=== PATIENT | male | born 1970 | race Hispanic/Latino ===

== ENCOUNTER → 2018-09-22 | Day surgery (SDC) | payer BC ==
[~2018-09-22] MED LIST: FENTANYL CITRATE/PF 100MCG/2 ML INJ ONE; MIDAZOLAM HCL 2 MG/2 ML VIAL ONE; PROPOFOL IV EMULSION 10 MG/ML 50 ML VIAL ONE
[2018-09-22 12:15] VITALS: BP 130/85
--- NOTE | 2018-09-22 19:03 | Operative Report ---
DATE OF PROCEDURE: 09/22/2018 SURGEON: Bruno Goodman MD PROCEDURE: Colonoscopy and polypectomy with biopsies. INDICATION FOR COLONOSCOPY: Colorectal cancer screening, father with colon cancer. MEDICATIONS: The patient was done under MAC, please see anesthesiologist's note. PROCEDURE IN DETAIL: With the patient in left lateral decubitus position, a flexible fiberoptic Olympus colonoscope was inserted into the rectum with ease and advanced all the way to the cecum. The scope was then withdrawn slowly. Mucosa overlying the cecum, ascending colon, transverse colon appeared to be within normal limits. Diverticular disease was noted to involve the distal descending and the sigmoid colon. There were some patchy [id number] inflammatory changes noted in the sigmoid as well as the rectum. Multiple random biopsies were obtained. One polyp was not biopsied from the sigmoid colon. The scope was then retroflexed into the distal rectum. Small internal hemorrhoids were noted, none of which were actively bleeding. The scope was then straightened out, it was subsequently withdrawn. The patient tolerated procedure well. IMPRESSION: 1. Diverticulosis. 2. Sigmoid colon polyp, minute, hot biopsied. 3. Proctosigmoiditis, mild, biopsies obtained. 4. Internal hemorrhoids, none actively bleeding. PLAN: Follow up histology. Initiate VSL #3 one p.o. q.i.d. and high-fiber, low-fat diet with a high-fiber supplement. The patient might benefit from a followup colonoscopy in 3 to 5 years. Bruno Goodman MD [facility] [place] [place] /[id number] cc: Radames Wyatt DO
== END | disposition home or self-care (01) ==
LOC: OR 08:32
PROVIDERS: ATTEND Internal Medicine Gastroenterology
DX: Z12.11 Encounter for screening for malignant neoplasm of colon (principal); Z80.0 Family history of malignant neoplasm of digestive organs; K57.30 Diverticulosis of large intestine without perforation or abscess without bleeding; K51.40 Inflammatory polyps of colon without complications; K64.8 Other hemorrhoids; K63.89 Other specified diseases of intestine; Z01.810 Encounter for preprocedural cardiovascular examination; R03.0 Elevated blood-pressure reading, without diagnosis of hypertension; Z71.3 Dietary counseling and surveillance; Z68.39 Body mass index [BMI] 39.0-39.9, adult
CPT/HCPCS: 45380; 45384; 93005; J2250; J2704; 45378

== ENCOUNTER → 2021-07-19 | Outpatient (CLI) | payer BC | LOC: RAD 15:13 | PROVIDERS: ATTEND Family Medicine | DX: U07.1 COVID-19 (principal); R06.02 Shortness of breath | CPT/HCPCS: 71046 ==